=== PATIENT | female | born 1950 | race Caucasian/White ===

== ENCOUNTER 2019-10-29 13:07 | Emergency (ER) | payer MEDICARE, SELFPAY ==
--- NOTE | ~2019-10-29 | CT_ITS ---
EXAMINATION: CT abdomen pelvis w con DATE: 10/29/2019 14:04 INDICATION: Abdominal pain, nausea and vomiting TECHNIQUE: Computed tomography (CT) of the abdomen and pelvis was performed . with 100 mL Omnipaque-3 50 intravenous contrast. Automated exposure control and iterative reconstruction technique were emplo yed. The dose-length product was 533.38 mGy-cm. COMPARISON: None FINDINGS: Atelectasis/scarring in the right middle lobe and along the left major fissure. Cardiomegaly. Atheros clerotic coronary artery calcifications. No pericardial or pleural effusion. Small sliding-type hiata l hernia. Calcified right hilar and mediastinal lymph nodes and splenic calcification, all consistent with old granulomatous disease. Liver, gallbladder, pancreas and bilateral adrenal glands are normal . Diffuse moderate atrophy of the left kidney. Obstructing 1-2 mm stone at the distalmost right urete r within 1 cm the ureterovesicular junction which results in mild right hydroureteronephrosis. There is perinephric stranding at the lower pole of the right kidney with small amount retroperitoneal flui d tracking caudally along the right ureter. Appendix is normal. There is moderate colonic diverticulo sis with a sigmoid predominance. There is no adjacent inflammatory change to suggest diverticulitis. No bowel obstruction. Bladder, anteverted uterus and bilateral adnexa are unremarkable. No free intr aperitoneal gas or fluid. There is extensive calcified atherosclerosis of the aorta and many of the o ther arteries. Suggestion of possible hemodynamically significant stenosis at the origins of the left renal and superior mesenteric arteries. No pathologically enlarged abdominal or pelvic lymphadenopat hy. Severe thoracic and lumbar spondylosis. IMPRESSION: 1. Obstructing 1-2 mm distal right ureteral stone with mild right hydronephrosis and small moderate p eritoneal fluid tracking along the right ureter suggesting possible secondary urinoma leak. 2. Small sliding-type hiatal hernia. 3. Cardiomegaly with coronary artery disease. 4. Moderate left renal atrophy which could be related to ischemia given the potentially hemodynamical ly significant stenosis at the origin of the left renal artery with additional possible significant s tenosis at the superior mesenteric artery. 5. Diverticulosis. Reviewed, dictated and finalized at location A. IMPRESSION: 1. Obstructing 1-2 mm distal right ureteral stone with mild right hydronephrosi s and small moderate peritoneal fluid tracking along the right ureter suggestin g possible secondary urinoma leak. 2. Small sliding-type hiatal hernia. 3. Cardiomegaly with coronary artery disease. 4. Moderate left renal atrophy which could be related to ischemia given the pot entially hemodynamically significant stenosis at the origin of the left renal a rtery with additional possible significant stenosis at the superior mesenteric artery. 5. Diverticulosis.
[2019-10-29 13:08] VITALS: BP 148/108; PULSE 87; RESP 18; O2SAT 98
[2019-10-29 13:28] LABS: Basophils Percent Auto 0.2 % (0.2-1.2); Eosinophils Percent Auto 0.3 % (0-4.4); Hematocrit 37.2 % (37.0-47.0); Hemoglobin 12.3 g/dL (12.0-15.0); Immature Granulocyte Absolute 0.03 K/mm3 (0.00-0.031); Immature Granulocyte Percent A 0.2 % (0-0.5); Lymphocytes Absolute Auto 1.89 K/mm3 (0.9-3.2); Lymphocytes Percent Auto 15.4 % (18.3-44.2); Mean Corpuscular HGB Conc 33.1 g/dl (32-36); Mean Corpuscular Hemoglobin 29.7 pg (26-34); Mean Corpuscular Volume 89.9 fl (80-100); Mean Platelet Volume 9.6 fl (7.4-10.4); Monocytes Absolute Auto 0.6 K/mm3 (0.1-0.6); Monocytes Percent Auto 5.1 % (2.6-8.5); Neutrophils Absolute Auto 9.6 K/mm3 (1.3-6.7); Neutrophils Percent Auto 78.8 % (45.5-73.1); Platelet Count Result 365 k/mm3 (150-375); Red Blood Count 4.14 M/mm3 (4.2-5.4); Red Cell Distribution Width 13.5 % (11.5-14.5); White Blood Count 12.2 K/mm3 (4.5-10.0)
[2019-10-29 13:37] LABS: Alanine Aminotransferase 25 U/L (4-35); Albumin Level 4.6 g/dL (3.5-5.1); Alkaline Phosphatase 89 U/L (38-126); Aspartate Amino Transferase 32 U/L (14-36); Bilirubin,Total 0.5 mg/dL (0.2-1.3); Blood Urea Nitrogen 31 mg/dL (7-17); Calcium 9.6 mg/dL (8.4-10.2); Carbon Dioxide 23 mmol/L (22-30); Chloride 105 mmol/L (98-107); Estimated CRCL calculation 45 ml/min; Estimated Glomerular Filt Rate 55; Glucose 198 mg/dL (65-105); Lipase 109 U/L (23-300); Potassium 3.9 mmol/L (3.4-5.0); Sodium 138 mmol/L (137-145)
--- NOTE | 2019-10-29 13:41 | ED.ABDPAIN ---
HPI - Abdominal Pain General Chief Complaint: Abdominal Pain Stated Complaint: RLQ PAIN Time Seen by Provider: 10/29/19 13:13 Source: RN notes reviewed History of Present Illness HPI narrative: Patient presents emergency department from home for abdominal pain. Patient states that pain began this morning around 10 AM. Pain is located in the right lower quadrant does not radiate. Pain is described as sharp and stabbing it is associated with nausea vomiting. Patient denies any fevers or chills diarrhea or any other symptoms. States she took no previous pain medication for the symptoms Related Data Allergies Allergy/AdvReac Type Severity Reaction Status Date / Time Penicillins Allergy Mild Verified 03/10/19 14:22 Review of Systems Review of Systems: Narrative: Gen.: Denies fevers or chills ENT: Denies congestion Respiratory: Denies shortness of breath or cough CV: Denies chest pain or palpitations GI: See HPI denies burning, urgency, frequency or hematuria Musculoskeletal: Denies back pain or muscle pain Neuro: Denies numbness, tingling, weakness or focal weakness Skin: Denies rash Except as documented, all other systems reviewed and negative [facility] Past Medical History Medical History (Updated 10/29/19 @ 15:27 by Luiz Wills DO) Atrial fibrillation Diabetes mellitus Hypertension Social History Social History (Updated 10/29/19 @ 13:42 by Luiz Wills DO) Smoking status: Never smoker Exam Narrative: Exam Narrative: APPEARANCE: No acute distress, nontoxic, resting in bed HEENT: Normocephalic, atraumatic, OMM RESPIRATORY: No respiratory distress, clear to auscultation bilaterally with no rhonchi wheezing or rales CARDIOVASCULAR: RRR s murmur ABDOMINAL: Soft, nondistended, tender palpation right lower quadrant, no tenderness in right upper quadrant, left upper quadrant left lower quadrant, no rebound or guarding MUSCULOSKELETAl: Moves all extremities. No clubbing, cyanosis or edema. NEURO: Awake and alert. Following commands, speech normal, no focal deficits SKIN:: Warm, dry. Normal Color PSYCHIATRIC: Normal affect/mood Course Course Emergency Course: Called discussed with Dr. Bucio presentation work-up discussed CT scan. At this time recommends patient be placed on Cipro 500 mg twice daily for 3 days and will follow as an outpatient Patient states she is feeling much better at this time Patient states that they are feeling much better at this time. States abdominal pain has resolved. Repeat abdominal exam shows the patient's abdomen to be soft and nontender. Discussed with patient results of workup and diagnosis. Discussed need for follow-up with primary care physician, reasons to return to the emergency department in proper use of medication. Patient understands and agrees to current treatment plan Vital Signs Vital signs: Vital Signs Pulse Rate 87 10/29/19 13:08 Respiratory Rate 18 10/29/19 13:08 Blood Pressure 148/108 H 10/29/19 13:08 Pulse Oximetry 98 10/29/19 13:08 Pulse Rate 87 10/29/19 13:08 Respiratory Rate 18 10/29/19 13:08 Blood Pressure 148/108 H 10/29/19 13:08 Pulse Oximetry 98 10/29/19 13:08 MDM - Abdominal Pain Lab Data Result diagrams: 10/29/19 13:16 10/29/19 13:16 Labs: Lab Results 10/29/19 10/29/19 10/29/19 Range/Units 13:16 13:16 14:37 WBC 12.2 H (4.5-10.0) K/mm3 RBC 4.14 L (4.2-5.4) M/mm3 Hgb 12.3 (12.0-15.0) g/dL Hct 37.2 (37.0-47.0) % MCV 89.9 (80-100) fl MCH 29.7 (26-34) pg MCHC 33.1 (32-36) g/dl RDW 13.5 (11.5-14.5) % Plt Count 365 (150-375) k/mm3 MPV 9.6 (7.4-10.4) fl Immature Gran % (Auto) 0.2 (0-0.5) % Neut % (Auto) 78.8 H (45.5-73.1) % Lymph % (Auto) 15.4 L (18.3-44.2) % [place] % (Auto) 5.1 (2.6-8.5) % Eos % (Auto) 0.3 (0-4.4) % Baso % (Auto) 0.2 (0.2-1.2) % Lymph # (Auto) 1.89 (0.9-3.2) K/mm3 [place] # (Auto)
[2019-10-29] MEDS: SODIUM CHLORIDE 0.9% IV 1,000 ML 999 ML IV CONT (13:49)
[2019-10-29] MEDS: ONDANSETRON INJ 4 MG/2 ML VIAL IV PUSH (13:49)
[2019-10-29 14:47] LABS: Add Urine Microscopic? YES; Appearance Urine Clear (Clear); Bilirubin Urine Negative (Negative); Blood Urine 3+ (Negative); Glucose Urine UA 2+ mg/dL (Negative); Ketones Urine Negative (Negative); Leukocyte Esterase Ur Negative LEU/UL (Negative); Mucus Urine Rare /lpf; Nitrate Urine Negative (Negative); Protein Urine Negative (Negative); RBC Urine >75 /hpf (0-2); Squamous Epithelial Cell Urine Occasional /hpf (Few); Urobilinogen Urine Negative mg/dL (<2.0); WBC Urine 0-3 /hpf
[2019-10-29 14:48] LABS: Color Urine Straw (Yellow); Specific Grav Ur 1.048 (1.001-1.035)
[2019-10-29] MEDS: TAMSULOSIN HCL 0.4 MG CAPSULE PO (15:32)
[2019-10-29] MEDS: CIPROFLOXACIN 500 MG TAB PO (15:33)
[2019-10-29 15:48] VITALS: BP 138/80; PULSE 80; RESP 20; O2SAT 99
== END 2019-10-29 15:50 | disposition home or self-care (01) ==
PROVIDERS: Emergency Provider Emergency Medicine; PCP Family Medicine
DX: N13.2 Hydronephrosis with renal and ureteral calculous obstruction (principal); I48.91 Unspecified atrial fibrillation; E11.9 Type 2 diabetes mellitus without complications; I10 Essential (primary) hypertension; K44.9 Diaphragmatic hernia without obstruction or gangrene; I25.10 Atherosclerotic heart disease of native coronary artery without angina pectoris; N26.1 Atrophy of kidney (terminal); K57.90 Diverticulosis of intestine, part unspecified, without perforation or abscess without bleeding
CPT/HCPCS: 36415; 74177; 80053; 81001; 83690; 85025; 96361; 96374; 96375; 99284; A9270; J0131; J2405; J7030; Q9967

== ENCOUNTER 2020-10-27 12:40 | Outpatient (CLI) | payer MEDICARE, SELFPAY ==
--- NOTE | ~2020-10-27 | US_ITS ---
EXAMINATION: US carotid duplex BI DATE: 10/27/2020 13:21 INDICATION: Lateral carotid artery stenosis TECHNIQUE: Grayscale, color Doppler, and pulsed Doppler images of the cervical carotid arteries were obtained. The degree of vessel stenosis is placed in one of the following categories: normal, <50%, 5 0-69%, >=70% but less than near-occlusion, near-occlusion, or total occlusion. Note that percent sten osis relative to normal distal artery lumen diameter is indirectly measured from velocity measurement s as described by Nima, et al. Radiology 2003; 229:340-346. Notes: Normal: Peak systolic velocity <125 centimeters/sec and no plaque <50%. Peak systolic velocity <125 ( EDV <40; ICA/CCA PSV ratio <2.0; used these factors only a tandem lesions or low cardiac output or co ntralateral disease) 50-69 %: PSV 125-230 (EDV 40-100; ratio 2-4) >= 70% but less than near occlusion: PSV greater than 230 (EDV > 100; ratio> 4.0) Near Occlusion: PSV that is variable; markedly narrowed lumen Occlusion: Absent flow on color/spectral Doppler and no lumen on camejo scale. COMPARISON: Ultrasound dated 06/06/2019. FINDINGS: RIGHT: The right common carotid artery (CCA) peak systolic velocity (PSV) is 55 cm/s. The right internal car otid artery (ICA) PSV is 100 cm/s. The right ICA end-diastolic velocity (EDV) is 39 cm/s. The right I CA/CCA PSV ratio is 1.8. The external carotid artery (ECA) PSV is 199 cm/s. There is antegrade flow i n the right vertebral artery. LEFT: The left CCA PSV is 64 cm/s. The left ICA PSV is 71 cm/s. The left ICA EDV is 23 cm/s. The left ICA/C CA PSV ratio is 1.1. The ECA PSV is 116 cm/s. There is antegrade flow in the left vertebral artery. IMPRESSION: 1. Less than 50% stenosis in the right internal carotid artery by sonographic criteria. 2. Less than 50% stenosis in the left internal carotid artery by sonographic criteria. Reviewed, dictated and finalized at location B. IMPRESSION: 1. Less than 50% stenosis in the right internal carotid artery by sonographic c maria luisa. 2. Less than 50% stenosis in the left internal carotid artery by sonographic jamila meehan.
== END 2020-10-27 12:41 | disposition home or self-care (01) ==
PROVIDERS: PCP Family Medicine; Visit Provider Internal Medicine Cardiovascular Disease
DX: I35.0 Nonrheumatic aortic (valve) stenosis (principal); I65.23 Occlusion and stenosis of bilateral carotid arteries
CPT/HCPCS: 93880

== ENCOUNTER → 2021-07-30 11:24 | Outpatient (CLI) | payer MEDICARE, SELFPAY ==
--- NOTE | ~2021-07-30 | CT_ITS ---
EXAMINATION: CT shoulder RT wo con DATE: 07/30/2021 11:53 INDICATION: Right shoulder pain. TECHNIQUE: Computed tomography (CT) of the right shoulder was performed without intravenous contrast. Automated exposure control and iterative reconstruction technique were employed. The dose-length pro duct was 455.12 mGy-cm. COMPARISON: None FINDINGS: There is a small right pleural effusion. There is superior subluxation of humeral head with respect to glenoid with narrowing of the subacromial space, consistent with rotator cuff tear. There is remodeling of the humeral head and acromion, consistent with cuff arthropathy. No fracture. There is severe osteoarthritis of glenohumeral joint and moderate osteoarthritis of acromioclavicular join t. There is volume loss and moderate fatty atrophy of supraspinatus and infraspinatus muscle bellies. IMPRESSION: 1. Severe right glenohumeral joint osteoarthritis. 2. Chronic right rotator cuff tear with cuff arthropathy. 3. Small right pleural effusion. Reviewed, dictated and finalized at location A. ROAD CAR REPAIRMAN
--- NOTE | ~2021-07-30 | XR_ITS ---
EXAMINATION: XR shoulder RT min 2V EXAM DATE: 07/30/2021 12:44 INDICATION: Right shoulder pain . TECHNIQUE: The following right shoulder projections obtained: frontal projection with internal rotati on, frontal projection with external rotation, Grashey, and axillary (4+ views). There is no prior s tudy for comparison. FINDINGS: No evidence of right shoulder rotator cuff calcific tendinosis. There is moderate to sev ere glenohumeral joint, mild to moderate acromioclavicular joint primary osteoarthritis. There are no acute fractures or dislocations identified. There is no subcutaneous gas. The soft tissue is unrem arkable. There are no radiopaque foreign bodies. There is aortic arteriosclerosis. Narrow space be tween humeral head and acromion could indicate rotator cuff tear. IMPRESSION: 1. Moderate to severe right glenohumeral joint osteoarthritis. 2. High riding right humeral head, possible rotator cuff tear. Reviewed, dictated and finalized at location A. ULATION REVIEWER
== END ==
PROVIDERS: Visit Provider Nurse Practitioner Adult Health
DX: M25.511 Pain in right shoulder (principal); M19.011 Primary osteoarthritis, right shoulder; M89.8X2 Other specified disorders of bone, upper arm; M75.101 Unspecified rotator cuff tear or rupture of right shoulder, not specified as traumatic; J90 Pleural effusion, not elsewhere classified
CPT/HCPCS: 73030; 73200

== ENCOUNTER → 2023-05-02 13:40 | Outpatient (CLI) | payer SELFPAY ==
--- NOTE | ~2023-05-02 | XR_ITS ---
EXAMINATION: XR shoulder RT min 2V DATE: 05/02/2023 14:47 INDICATION: Right shoulder pain. TECHNIQUE: 4 views of right shoulder were obtained. COMPARISON: Right shoulder radiographs 07/30/2021 FINDINGS: Bone alignment is normal. No fracture. There is advanced osteoarthritis of glenohumeral keila nt. Again seen is narrowing of the subacromial space, consistent with chronic rotator cuff tear. Ther e is moderate osteoarthritis of acromioclavicular joint. IMPRESSION: 1. Advanced right glenohumeral joint osteoarthritis. 2. Chronic right rotator cuff tear. Reviewed, dictated and finalized at location A. PATIAL SPECIALIST
== END ==
PROVIDERS: PCP Nurse Practitioner Adult Health; Visit Provider Nurse Practitioner Adult Health
DX: M75.101 Unspecified rotator cuff tear or rupture of right shoulder, not specified as traumatic (principal); M19.011 Primary osteoarthritis, right shoulder
CPT/HCPCS: 73030

== ENCOUNTER 2023-10-22 10:55 | Inpatient (IN) | payer MEDICARE, SELFPAY ==
[2023-10-22] VITALS (26 sets, daily range): BP systolic 94–140; BP diastolic 30–88; PULSE 81–137; RESP 14–36; TEMP 36.4–36.9; O2SAT 94–100; BMI 26.1
--- NOTE | ~2023-10-22 | CT_ITS ---
EXAMINATION: CT brain wo con DATE: 10/22/2023 11:16 INDICATION: Multiple falls. Left forehead bruising. Patient is taking anticoagulant therapy. TECHNIQUE: Computed tomography (CT) of the head was performed without intravenous contrast. The mA wa s adjusted according to patient size. Iterative reconstruction technique was employed. Exam dose: 52 9.67 mGy-cm total exam DLP. COMPARISON: 03/10/2019 CT brain FINDINGS: Prominent bilateral vertebral artery calcifications and prominent bilateral carotid siphon and supraclinoid internal carotid artery calcifications. Old right frontal infarct, not present on 03/10/2019. No other cerebrovascular accident is evident. T here is nonspecific diminished attenuation the cerebral white matter, likely due to chronic small ves adelina ischemic changes. No intracranial mass lesion or hemorrhage, midline shift or mass effect is detected. No subdural or epidural hematoma. The included mastoid air cells and paranasal sinuses are unremarkable. No fracture or bone destruction of the cranial vault. 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 Reviewed, dictated and finalized at location A. IMPRESSION: Old right frontal cerebrovascular accident, not present on 019 Cerebral atherosclerosis and chronic small vessel ischemic changes of the cereb ral white matter No acute intracranial finding
--- NOTE | ~2023-10-22 | CT_ITS ---
EXAMINATION: CT cervical spine wo con DATE: 10/22/2023 11:16 INDICATION: Falls. Left fourth rib bruising. TECHNIQUE: Computed tomography (CT) of the cervical spine was performed without intravenous contrast. Automated exposure control and iterative reconstruction technique were employed. Exam dose: 419.52 mGy-cm total exam DLP. COMPARISON: None FINDINGS: Normal alignment at the atlantoaxial joints. C1 and C2 are normally aligned and the odontoid process is intact. No fracture or dislocation or facet or prevertebral soft tissue swelling is detected. There is approximately 2 mm anterolisthesis at C4-5. There is severe degenerative disc disease prominent anterior spurring at C5-6. Approximately 1 mm anterolisthesis at C6-7. There is severe degenerative disc disease at C6-7 with pr ominent anterior spurring. Moderately severe degenerative disc disease at C7-T1 and T1 to. Moderate degenerative disease at T2-3 . There is uncovertebral joint spurring at the mid and lower cervical spine, particularly prominent adri aterally at C5-6. There is fusion at the apophyseal joints bilaterally at T2-C4 and moderate degenerative change of the remaining apophyseal joints, especially severe on the left and on the right at C7-T1. IMPRESSION: Severe cervical spondylosis and no fracture is detected Reviewed, dictated and finalized at Location A. Reviewed, dictated and finalized at location A.
--- NOTE | ~2023-10-22 | US_ITS ---
EXAMINATION: US carotid duplex BI DATE: 10/23/2023 09:45 INDICATION: Syncope TECHNIQUE: Grayscale, color Doppler, and pulsed Doppler images of the cervical carotid arteries were obtained. The degree of vessel stenosis is placed in one of the following categories: normal, <50%, 5 0-69%, >=70% but less than near-occlusion, near-occlusion, or total occlusion. Note that percent sten osis relative to normal distal artery lumen diameter is indirectly measured from velocity measurement s as described by Nima, et al. Radiology 2003; 229:340-346. Notes: Normal: Peak systolic velocity <125 centimeters/sec and no plaque <50%. Peak systolic velocity <125 ( EDV <40; ICA/CCA PSV ratio <2.0; used these factors only a tandem lesions or low cardiac output or co ntralateral disease) 50-69 %: PSV 125-230 (EDV 40-100; ratio 2-4) >= 70% but less than near occlusion: PSV greater than 230 (EDV > 100; ratio> 4.0) Near Occlusion: PSV that is variable; markedly narrowed lumen Occlusion: Absent flow on color/spectral Doppler and no lumen on camejo scale. COMPARISON: Ultrasound dated 10/27/2020. FINDINGS: RIGHT: The right common carotid artery (CCA) peak systolic velocity (PSV) is 77 cm/s. The right internal car otid artery (ICA) PSV is 182 cm/s. The right ICA end-diastolic velocity (EDV) is 41 cm/s. The right I CA/CCA PSV ratio is 2.4. The external carotid artery (ECA) PSV is 434 cm/s. There is antegrade flow i n the right vertebral artery. LEFT: The left CCA PSV is 100 cm/s. The left ICA PSV is 211 cm/s. The left ICA EDV is 37 cm/s. The left ICA /CCA PSV ratio is 2.1. The ECA PSV is 410 cm/s. There is antegrade flow in the left vertebral artery . IMPRESSION: 1. 50-69% stenosis in the right internal carotid artery by sonographic criteria. 2. 50-69% stenosis in the left internal carotid artery by sonographic criteria. Reviewed, dictated and finalized at location B. IMPRESSION: 1. 50-69% stenosis in the right internal carotid artery by sonographic criteria . 2. 50-69% stenosis in the left internal carotid artery by sonographic criteria.
--- NOTE | 2023-10-22 11:42 | ECG_ITS ---
[facility] [address] Test Date: 2023-10-22 Pat Name: Elvia Velasquez Department: Room: Gender: F [employer]: : 1950 Requested By: Alex Loving Order Number: [id number] Jv MD: Devang Kumar M.D. Measurements Intervals [place] Rate: 121 P: 0 AK: 0 QRS: 63 QRSD: 97 T: -53 QT: 289 QTc: 411 Interpretive Statements ATRIAL FIBRILLATION WITH RAPID VENTRICULAR RESPONSE ST DEVIATION AND MODERATE T-WAVE ABNORMALITY, CONSIDER LATERAL ISCHEMIA [-0.1+ mV T WAVE IN I/aVL/V5/V6] ST DEVIATION AND MODERATE T-WAVE ABNORMALITY, CONSIDER INFERIOR ISCHEMIA [-0.1+ mV T WAVE IN II/aVF] No previous ECG available for comparison Electronically Signed On 10-22-2023 14:20:56 CDT by Devang Kumar M.D.
[2023-10-22 11:45] LABS: Basophils Percent Auto 0.2 % (0.2-1.2); Eosinophils Percent Auto 0.1 % (0-4.4); Immature Granulocyte Absolute 0.06 K/mm3 (0.00-0.031); Immature Granulocyte Percent A 0.4 % (0-0.5); Lymphocytes Absolute Auto 1.72 K/mm3 (0.9-3.2); Mean Corpuscular HGB Conc 32.1 g/dl (32-36); Mean Corpuscular Hemoglobin 29.7 pg (26-34); Mean Corpuscular Volume 92.6 fl (80-100); Mean Platelet Volume 9.5 fl (7.4-10.4); Monocytes Absolute Auto 0.9 K/mm3 (0.1-0.6); Monocytes Percent Auto 6.1 % (2.6-8.5); Neutrophils Absolute Auto 11.6 K/mm3 (1.3-6.7); Neutrophils Percent Auto 81.2 % (45.5-73.1); Platelet Count Result 373 k/mm3 (150-375); Red Blood Count 2.02 M/mm3 (4.2-5.4); Red Cell Distribution Width 14.6 % (11.5-14.5); White Blood Count 14.3 K/mm3 (4.5-10.0)
[2023-10-22 11:49] LABS: Hematocrit 18.7 % (37.0-47.0)
[2023-10-22 12:00] LABS: Albumin Level 4.2 g/dL (3.5-5.1); Alkaline Phosphatase 73 U/L (38-126); Anion Gap 15 mmol/L (4-12); Aspartate Amino Transferase 38 U/L (14-36); Bilirubin,Total 0.6 mg/dL (0.2-1.3); Blood Urea Nitrogen 40 mg/dL (7-17); Calcium 9.3 mg/dL (8.4-10.2); Carbon Dioxide 20 mmol/L (22-30); Chloride 100 mmol/L (98-107); Estimated CRCL calculation 46 ml/min; Estimated Glomerular Filt Rate > 60; Glucose 239 mg/dL (65-110); Lipase 490 U/L (23-300); Sodium 135 mmol/L (137-145)
[2023-10-22 12:02] LABS: Alanine Aminotransferase 25 U/L (6-35)
[2023-10-22 12:32] LABS: Appearance Urine Clear (Clear); Bacteria Urine None Seen /hpf; Bilirubin Urine Negative (Negative); Blood Urine Negative (Negative); Color Urine Yellow (Yellow); Glucose Urine UA 3+ mg/dL (Negative); Ketones Urine Trace mg/dL (Negative); Leukocyte Esterase Ur Negative LEU/UL (Negative); Need Manual Microscopic Reviewed; Nitrate Urine Negative (Negative); Protein Urine Trace mg/dL (Negative); RBC Urine 0-2 /hpf (0-2); Specific Grav Ur 1.023 (1.001-1.035); Squamous Epithelial Cell Urine None Seen /hpf (Few); Urobilinogen Urine 0.2 mg/dL (<2.0); WBC Urine 0-5 /hpf (0-3); pH Urine 5.5 (5.0-9.0)
[2023-10-22 12:37] LABS: Add Urine Microscopic? YES
--- NOTE | 2023-10-22 12:58 | ED.GENADULT ---
HPI - General Adult General Chief complaint: Nausea/Vomiting/Diarrhea Stated complaint: nausea vomiting, falls, Time Seen by Provider: 10/22/23 12:22 History of Present Illness HPI narrative: 73-year-old female presenting emergency department for evaluation for having 2 syncopal episodes this week. Patient had her 1st fall on Tuesday and had a 2nd fall last night. Patient did strike her head during the fall last night. Patient states after Tuesday she has been passing black tarry stool. Patient states she has no prior history of GI bleed or gastric ulcers. Patient is not on any blood thinners. Patient states she does take ibuprofen. Related Data Home Medications Medication Instructions Recorded Confirmed atorvastatin 80 mg tablet 80 mg PO DAILY 08/29/23 08/29/23 diltiazem HCl 300 mg 300 mg PO DAILY 08/29/23 08/29/23 capsule,extended release 24 hr (Cardizem CD) glipizide 5 mg tablet 5 mg PO DAILY 08/29/23 08/29/23 levothyroxine 100 mcg tablet 100 mcg PO DAILY 08/29/23 08/29/23 (Synthroid) meloxicam 15 mg tablet 15 mg PO DAILY 08/29/23 08/29/23 olmesartan 20 mg tablet 20 mg PO DAILY 08/29/23 08/29/23 rivaroxaban 20 mg tablet (Xarelto) 20 mg PO DAILY 08/29/23 08/29/23 salicylic acid 2 % topical pads 1 applic topical QHS 08/29/23 08/29/23 sitagliptin phos 100 mg-metformin 1 tablet PO DAILY 08/29/23 08/29/23 ER 1,000 mg tablet,extend rel 24h mp (Janumet XR) tramadol 50 mg tablet 50 mg PO Q6H PRN 08/29/23 08/29/23 Allergies Allergy/AdvReac Type Severity Reaction Status Date / Time Penicillins Allergy Mild Unknown Verified 08/29/23 10:55 Review of Systems Review of Systems: All systems reviewed & are unremarkable except as noted in HPI and below PMFSH Past Medical History Medical History (Updated 10/22/23 @ 15:44 by Julianna Barahona PA-C) Atrial fibrillation Chronic anticoagulation History of stress test Hyperlipidemia Hypertension Hypothyroidism Paroxysmal atrial fibrillation Type 2 diabetes mellitus Surgical History Surgical History (Updated 10/22/23 @ 15:42 by Julianna Barahona PA-C) History of cardioversion History of lumpectomy of right breast Family History Family History Other Breast cancer Social History Social History (Updated 10/22/23 @ 15:43 by Julianna Barahona PA-C) Social History: Surrogate medical decision maker: Ced Velasquez, son. Code status: Full code. Smoking status: Never smoker Alcohol intake: never Substance use: never Substance use type: does not use Do You Feel Safe in your Home?: Yes Lack of Transportation: No Lack of Food: Never True Current Housing: I Have Housing Concerned About Future Housing: No Difficulty Paying Gas/Electric Bills: No Difficulty Paying for Meds: No Currently Unemployed: No Education: High School Diploma/GED Difficulty w/ Childcare or Family Care: No Spiritual care concerns: No Exam Narrative: APPEARANCE: Well appearing, no pain, no distress, well-nourished. HEAD: normocephalic, facial contusion with minimal tenderness to palpation. EYES: PERRLA/EOMI, conjunctivae clear. NOSE: Normal no drainage EARS:TMS clear with good light reflex. THROAT: Pharynx clear, no exudate. NECK: Supple. No adenopathy, no masses. RESPIRATORY: Airway patent, respirations nonlabored. Clear to auscultation bilaterally, no rales, rhonchi, wheezing. CARDIOVASCULAR: Regular rate and rhythm without murmurs rubs or gallops. ABDOMINAL: Soft, nontender, nondistended, normal bowel sounds Rectal exam: Hemoccult positive with dark melena stool on the digital rectal exam MUSCULOSKELETAL: Moves all extremities. Strength/ROM intact, No edema, No calf tenderness. NEURO: Alert. Cranial nerves II through XII intact. Good gait. Good coordination SKIN: Warm, dry. Normal Color PSYCHIATRIC: Normal affect/mood. Course Vital Signs Vital signs: Vital Signs Pulse Rat
[2023-10-22] MEDS: ONDANSETRON INJ 4 MG/2 ML VIAL IV PUSH (13:22)
[2023-10-22] MEDS: PANTOPRAZOLE SODIUM IV 40 MG VIAL 80 MG IV PUSH (13:24)
[2023-10-22] MEDS: PANTOPRAZOLE SODIUM IV 80 MG in SODIUM CHLORIDE 0.9% IV 500 ML 50 MG IV CONT (14:11)
[2023-10-22] MEDS: SODIUM CHLORIDE 0.9% IV 1,000 ML 999 ML IV CONT (14:14)
--- NOTE | 2023-10-22 15:40 | PM.IMHP ---
H&P: HPI History of Present Illness Date/Time: 10/22/23 16:30 Chief Complaint: Falls, syncope, nausea, vomiting. Narrative: This is a very pleasant 73-year-old female with paroxysmal atrial fibrillation on chronic anticoagulation, hypertension, hyperlipidemia, type 2 diabetes mellitus, hypothyroidism, and arthritis who presented to the emergency department for evaluation of falls, syncope, nausea, and vomiting. The patient provides the following history. She has not felt well for 5 days with symptoms to include nausea, vomiting on Tuesday with the appearance of coffee-ground emesis, dark stools, progressive weakness, and dizziness with position changes. She had a syncopal episode on Tuesday evening after standing up in feeling extremely lightheaded. She fell forward and hit her head on the concrete patio. Luckily there were no significant injuries and she was able to get herself up. She fell again last night under similar circumstances but there was no loss of consciousness this time. She started Ozempic about 4 weeks ago and she has had some mild nausea since that time but nothing significant. She takes meloxicam daily for arthritic pain but denies other NSAID use. She drinks 1 soda a day and denies alcohol use. No history of peptic ulcers. No known sick contacts. She denies fever, chills, sweats, cold and flu symptoms, chest pain, pleuritic pain, palpitations, epigastric pain, abdominal pain, bloating, belching, and hematochezia. In the ED: She was in rapid atrial fibrillation with rates in the 130s on arrival. Blood pressures were as low as 94/38. Labs were significant for a WBC count of 14.3, hemoglobin 6.0, hematocrit 18.7 %, BUN 40, creatinine 0.90, glucose 239, lipase 490, total bilirubin 0.6, AST 30, ALT 25, alkaline phosphatase 73. Head CT showed old right frontal cerebrovascular accident and cerebral atherosclerosis and chronic small-vessel ischemic changes of the cerebral white matter but no acute intracranial finding. Cervical spine CT showed severe cervical spondylosis but no fracture. She was started on pantoprazole and 2 units packed red blood cells have been ordered. She is being admitted in this setting for further workup. Review of Systems Review of Systems: 12 systems were reviewed and are negative except for as per HPI. [facility] Past Medical History Medical History Atrial fibrillation Chronic anticoagulation History of stress test Hyperlipidemia Hypertension Hypothyroidism Paroxysmal atrial fibrillation Type 2 diabetes mellitus Surgical History Surgical History History of cardioversion History of lumpectomy of right breast Family History Family History Other Breast cancer Social History Social History Social History: Surrogate medical decision maker: Ced Velasquez, son. Code status: Full code. Smoking status: Never smoker Alcohol intake: never Substance use: never Substance use type: does not use Do You Feel Safe in your Home?: Yes Lack of Transportation: No Lack of Food: Never True Current Housing: I Have Housing Concerned About Future Housing: No Difficulty Paying Gas/Electric Bills: No Difficulty Paying for Meds: No Currently Unemployed: No Education: High School Diploma/GED Difficulty w/ Childcare or Family Care: No Spiritual care concerns: No Meds Home Medications and Allergies Home Medications Medication Instructions Recorded Confirmed Type atorvastatin 80 mg tablet 80 mg PO DAILY 08/29/23 08/29/23 History diltiazem HCl 300 mg 300 mg PO DAILY 08/29/23 08/29/23 History capsule,extended release 24 hr (Cardizem CD) glipizide 5 mg tablet 5 mg PO DAILY 08/29/23 08/29/23 History levothyroxine 100 mcg tablet 100 mcg PO DAILY 04
--- NOTE | 2023-10-22 16:26 | ADMGEN ---
This patient, Elvia Velasquez, was admitted to [facility] [place] at 1618. Patient/family oriented to hospital policies and general routines including ID bracelet, bed and alarms, visiting hours, pain management, procedures, bathroom and other care routines, personal items, smoking policy, room service/diet, and visiting hours. Information on how to activate the Rapid Response Team has been discussed. Patient/Family are encouraged to report perceived risks to care and to ask questions if they do not understand what they are told or what they should do.
[2023-10-22 17:04] LABS: Hemoglobin A1C 6.7 % (<5.7)
[2023-10-22] MEDS: SODIUM CHLORIDE 0.9% IV 250 ML 30 ML IV CONT (19:18)
[2023-10-22] MEDS: TUBING, BLOOD SET 1 EACH XX (19:19)
[2023-10-22] MEDS: TUBING, BLOOD PLUM PUMP TUBING 1 EACH XX ×2 (19:21→21:45)
[2023-10-22] MEDS: SODIUM CHLORIDE 0.9% IV 250 ML 30 ML (21:46)
[2023-10-22 23:05] LABS: Glucose Point of Care 83 mg/dl (65-105)
[2023-10-23] VITALS (18 sets, daily range): BP systolic 121–175; BP diastolic 64–74; PULSE 80–121; RESP 16–24; TEMP 36.4–37; O2SAT 96–99
[2023-10-23] MEDS: PANTOPRAZOLE SODIUM IV 80 MG in SODIUM CHLORIDE 0.9% IV 500 ML 50 MG IV CONT ×3 (01:19→21:07)
[2023-10-23 01:31] LABS: Hemoglobin 8.3 g/dL (12.0-15.0)
[2023-10-23 04:38] LABS: Basophils Percent Auto 0.3 % (0.2-1.2); Eosinophils Absolute Auto 0.1 K/mm3 (0-0.3); Hematocrit 26.3 % (37.0-47.0); Hemoglobin 8.4 g/dL (12.0-15.0); Immature Granulocyte Absolute 0.05 K/mm3 (0.00-0.031); Immature Granulocyte Percent A 0.4 % (0-0.5); Lymphocytes Percent Auto 21.9 % (18.3-44.2); Mean Corpuscular HGB Conc 31.9 g/dl (32-36); Mean Corpuscular Hemoglobin 29.8 pg (26-34); Mean Corpuscular Volume 93.3 fl (80-100); Mean Platelet Volume 9.3 fl (7.4-10.4); Monocytes Absolute Auto 1.2 K/mm3 (0.1-0.6); Neutrophils Absolute Auto 9.2 K/mm3 (1.3-6.7); Neutrophils Percent Auto 67.4 % (45.5-73.1); Platelet Count Result 311 k/mm3 (150-375); Red Blood Count 2.82 M/mm3 (4.2-5.4); Red Cell Distribution Width 15.1 % (11.5-14.5); White Blood Count 13.7 K/mm3 (4.5-10.0)
[2023-10-23 04:51] LABS: Alanine Aminotransferase 17 U/L (6-35); Albumin Level 3.4 g/dL (3.5-5.1); Alkaline Phosphatase 65 U/L (38-126); Anion Gap 6 mmol/L (4-12); Aspartate Amino Transferase 31 U/L (14-36); Bilirubin,Total 1.1 mg/dL (0.2-1.3); Blood Urea Nitrogen 33 mg/dL (7-17); Calcium 8.7 mg/dL (8.4-10.2); Carbon Dioxide 23 mmol/L (22-30); Chloride 106 mmol/L (98-107); Estimated CRCL calculation 42 ml/min; Estimated Glomerular Filt Rate 54; Glucose 96 mg/dL (65-110); Lipase 571 U/L (23-300); Magnesium 1.7 mg/dL (1.6-2.3); Potassium 4.3 mmol/L (3.4-5.0); Sodium 135 mmol/L (137-145)
[2023-10-23 04:56] LABS: INR 1.3; Partial Thromboplastin Time 31.6 Seconds (22.3-36.8); Prothrombin Time 16.6 Seconds (11.1-14.7)
--- NOTE | 2023-10-23 08:20 | PM.IMPN ---
Progress Note: A&P Assessment and Plan (1) GI bleed: Code(s): K92.2 - Gastrointestinal hemorrhage, unspecified Status: Acute (2) Acute blood loss anemia: Code(s): D62 - Acute posthemorrhagic anemia Status: Acute (3) Syncope: Code(s): R55 - Syncope and collapse Status: Acute (4) Paroxysmal atrial fibrillation: Code(s): I48.0 - Paroxysmal atrial fibrillation Status: Acute (5) Chronic anticoagulation: Code(s): Z79.01 - retirement (current) use of anticoagulants Status: Acute (6) Type 2 diabetes mellitus: Code(s): E11.9 - Type 2 diabetes mellitus without complications Status: Acute (7) Hypertension: Code(s): I10 - Essential (primary) hypertension Status: Acute (8) Hypothyroidism: Code(s): E03.9 - Hypothyroidism, unspecified Status: Acute Plan The patient presented to the emergency department for evaluation of falls, nausea, vomiting, and dark stools as detailed upon review the ED,She is profoundly anemic due to presumed upper GI bleed with risk factors to include meloxicam and rivaroxaban use. acute GI bleeding, acute blood loss anemia patient's nausea vomiting, black stools, hemoglobin 6.0, no recent hemoglobin baseline patient is on NSAID and Xeralto, that may result to the acute bleeding hold NSAID and blood thinner Continue Protonix IV Received pack RBC, hemoglobin stable, 8.4 today follow-up iron panel, Consult GI Keep patient p.o. Plans EGD type 2 diabetes Hold oral medications Start insulin sliding scales, hypoglycemic protocol is initiated Paroxysmal AFib Hold blood thinner due to active bleeding, resume blood thinner but is okay for GI rate is controlled syncope Possible due to acute blood loss and hypovolemia Telemetry monitoring Patient has no focal weakness Follow echocardiogram Doppler ultrasound of carotid artery Subjective Date/time seen: 10/23/23 08:20 Interval history: I saw exam patient today patient feels better today, denies abdomen pain, nausea vomiting black stools. Patient is afebrile, blood pressure stable, hemoglobin stable 8.5 patient received blood transfusion Exam Narrative: GENERAL: Pleasant, in no acute distress. Well-nourished. - EYES: EOMI. Anicteric. - HENT: Moist mucous membranes. - LUNGS: Clear to auscultation bilaterally, no wheezing, rhonchi, or rales. - CARDIOVASCULAR: Regular rate and rhythm. No murmur. No JVD. - ABDOMEN: Soft, non-tender and non-distended. No palpable masses. - EXTREMITIES: No edema. Peripheral pulses 2+. Non-tender. - NEUROLOGIC: No focal neurological deficits. CN II-XII grossly intact. - PSYCHIATRIC: Awake, Alert and oriented x 3. Appropriate mood and affect. - SKIN: No rashes or lesions. Warm. - LYMPH: No cervical lymphadenopathy. Objective Data Vital Signs Vital Signs: Vital Signs - 24 hr 10/22/23 11:04 10/22/23 11:26 10/22/23 11:34 Temperature Pulse Rate 124 H 131 H 137 H Respiratory Rate 20 17 17 Blood Pressure 113/40 L 117/88 106/38 L Pulse Oximetry 100 99 99 Oxygen Delivery 10/22/23 11:56 10/22/23 12:10 10/22/23 12:16 Temperature Pulse Rate 123 H 122 H 123 H Respiratory Rate 20 18 18 Blood Pressure 95/40 L 97/58 L 98/50 L Pulse Oximetry 99 100 99 Oxygen Delivery 10/22/23 12:28 10/22/23 13:16 10/22/23 14:00 Temperature Pulse Rate 126 H 123 H 108 H Respiratory Rate 15 20 16 Blood Pressure 97/30 L 97/49 L Pulse Oximetry 100 100 100 Oxygen Delivery 10/22/23 14:31 10/22/23 15:04 10/22/23 15:31 Temperature Pulse Rate 103 H 88 100 Respiratory Rate 19 20 19 Blood Pressure 94/38 L 99/47 L 107/63 Pulse Oximetry 100 100 99 Oxygen Delivery 10/22/23 16:05 10/22/23 16:53 10/22/23 17:12 Temperature 98.0 F 98.5 F Pulse Rate 90 83 81 Respiratory Rate 16 20 20 Blood Pressure 99/43 L 117/42 L 97/52 L Pulse Oximetry 98 96 97 Oxygen Delivery 10/22/23
[2023-10-23 09:39] LABS: Iron 65 ug/dL (37-170)
[2023-10-23 09:51] LABS: Percent Iron Saturation 17 % (20-50)
[2023-10-23 09:58] LABS: Hematocrit 24.8 % (37.0-47.0); Hemoglobin 8.1 g/dL (12.0-15.0)
[2023-10-23 12:13] LABS: Glucose Point of Care 212 mg/dl (65-105)
--- NOTE | 2023-10-23 12:44 | WPDGICN ---
Assessment and Plan Assessment and plan (1) GI bleed: Code(s): K92.2 - Gastrointestinal hemorrhage, unspecified Status: Acute Assessment and Plan: this most likely caused syncopal episode blood thinner on hold egd in am- probably ulcer- she is taking nsaid's iv protonix (2) Acute blood loss anemia: Code(s): D62 - Acute posthemorrhagic anemia Status: Acute Assessment and Plan: s/p blood transfusion iv protonix monitor for more signs of bleeding will do also colonoscopy (3) Melena: Code(s): K92.1 - Melena Status: Acute (4) Syncope: Code(s): R55 - Syncope and collapse Status: Acute (5) Chronic anticoagulation: Code(s): Z79.01 - intermediate (current) use of anticoagulants Status: Acute (6) Paroxysmal atrial fibrillation: Code(s): I48.0 - Paroxysmal atrial fibrillation Status: Acute (7) Type 2 diabetes mellitus: Code(s): E11.9 - Type 2 diabetes mellitus without complications Status: Acute GI Consult Note Consult date/time: 10/23/23 12:44 Reason for consult: melena, acute anemia, syncope HPI: Elvia Velasquez is a 73 year old female with h/o afib on xarelto, arthritis on meloxican, DM here with gib. She says that few days ago had one episode of emesis, then when she was out walking her dog all the sudden loss consciousness and fell to the floor hitting her left sided face and knee. Then she went home to rest and her soon took her to PCP and advised to monitor, then she had two episodes of dark tarry stools and next day had another syncopal episode this time at home, finally her son decided to bring her to ER. Her hgb was 6, bun 40, admitted to floor and given blood transfusion with iv protonix, rectal exam positive for blood. She is hemodynamically stable, had CT scan head. Last colonoscopy about 4 years ago. Son is here. Review of Systems Constitutional: Constitutional: Reports weakness Eyes: Eyes: Denies blurry vision ENT: Reports Normal hearing present Cardiovascular: Cardiovascular: Denies chest pain Respiratory: Respiratory: Denies cough Gastrointestinal: Gastrointestinal: Reports melena Genitourinary: Genitourinary: Denies dysuria Musculoskeletal: Comments: chronic arthritis using meloxicam Integumentary/Breasts: Skin/Breast: Denies rash Neurologic: Denies Abnormal speech present Psychiatric: Psychiatric: Denies behavioral changes [facility] Past Medical History Medical History (Updated 10/23/23 @ 12:50 by Austen Hassan MD) Atrial fibrillation Chronic anticoagulation History of stress test Hyperlipidemia Hypertension Hypothyroidism Melena Paroxysmal atrial fibrillation Type 2 diabetes mellitus Surgical History Surgical History History of cardioversion History of lumpectomy of right breast Family History Family History Other Breast cancer Social History Social History Social History: Surrogate medical decision maker: Ced Velasquez, caitie. Code status: Full code. Smoking status: Never smoker Alcohol intake: never Substance use: never Substance use type: does not use Do You Feel Safe in your Home?: Yes Lack of Transportation: No Lack of Food: Never True Current Housing: I Have Housing Concerned About Future Housing: No Difficulty Paying Gas/Electric Bills: No Difficulty Paying for Meds: No Currently Unemployed: No Education: High School Diploma/GED Difficulty w/ Childcare or Family Care: No Spiritual care concerns: No Meds Home Medications and Allergies Home Medications Medication Instructions Recorded Confirmed Type atorvastatin 80 mg tablet 80 mg PO DAILY 08/29/23 10/22/23 History diltiazem HCl 300 mg 300 mg PO DAILY 08/29/23 10/22/23 History
[2023-10-23] MEDS: INSULIN ASPART (*BKC) 100 UNITS/ML SUB-Q ×2 (13:12→19:38)
[2023-10-23 16:25] LABS: Hematocrit 25.7 % (37.0-47.0); Hemoglobin 8.3 g/dL (12.0-15.0)
[2023-10-23] MEDS: BISACODYL 5 MG TABLET EC 20 MG PO (18:08)
[2023-10-23] MEDS: polyethylene glycoL 3350 238 GM BOTTLE PO (18:09)
[2023-10-23 19:19] LABS: Glucose Point of Care 210 mg/dl (65-105)
[2023-10-23 20:42] LABS: Hematocrit 28.3 % (37.0-47.0); Hemoglobin 9.2 g/dL (12.0-15.0)
[2023-10-24] VITALS (21 sets, daily range): BP systolic 135–184; BP diastolic 60–102; PULSE 81–155; RESP 16–29; TEMP 36.1–37.1; O2SAT 96–99
--- NOTE | 2023-10-24 | ECHO_ITS ---
Patient Info Name: Elvia Velasquez Age: 73 years : 1950 Gender: Female Ht: 64 in Wt: 152 lbs BSA: 1.78 m2 HR: 120 bpm BP: 182 / 73 mmHg Heart Rhythm: Atrial Fibrillation Technical Quality: Fair Exam Date: 10/24/2023 8:24 AM Exam Location: Echo Lab Patient Status: Outpatient Admit Date: 10/22/2023 Staff Ordering Physician: Julianna Barahona PA-C Paralegal Legal Secretary: Miguel Kenyon RDCS Attending Provider: Anant Morley MD Referring Physician: [place] ADAM; Exam Type: CA echo doppler color flow Study Info Indications R55 - Syncope and collapse I48.1 - Persistent atrial fibrillation Complete two-dimensional, color flow and Doppler transthoracic echocardiogram is performed. Summary 1. Complete two-dimensional, color flow and Doppler transthoracic echocardiogram is performed. 2. Technically somewhat difficult exam. 3. Left ventricular hypertrophy with preserved systolic function. 4. Poorly visualized aortic valve which appears to be moderately stenotic. 5. Biatrial dilation. 6. Atrial fibrillation. Left Ventricle Left ventricular chamber dimension is normal. Left ventricular systolic function is normal, estimated at 60-65%. There is mild concentric increased left ventricular wall thickness. The left ventricular diastolic function is indeterminate. Right Ventricle Right ventricular chamber dimension is normal. Left Atria Left atrial chamber dimension is moderately enlarged. Right Atria Right atrial chamber dimension is mildly enlarged. Aortic Valve The aortic valve is trileaflet. There is moderate aortic valve stenosis with a peak velocity of 305 cm/s, mean gradient of 15 mmHg, and aortic valve area of 1.0 cm2. Pulmonic Valve The pulmonic valve is not well visualized. Mitral Valve The mitral valve has normal leaflets. The mitral valve annulus is mildly calcified. Tricuspid Valve The tricuspid valve leaflets are normal. There is trace tricuspid valve regurgitation. Pericardium/Pleural The pericardium appears normal. Aorta The aortic root size at the sinus of Valsalva is normal. Left Ventricular Outflow Tract Name Value Normal LVOT 2D LVOT Diameter 1.9 cm LVOT Doppler LVOT Peak Gradient 4 mmHg LVOT Mean Gradient 2 mmHg LVOT VTI 19 cm LVOT VTI/AV VTI Ratio 0.3 LVOT Stroke Volume 52 ml LVOT CO 9.8 l/min LVOT CI 5.5 l/min/m2 Pulmonic Valve Name Value Normal RVOT Doppler RVOT Peak Gradient 3 mmHg PV Doppler PV Peak Gradient 7 mmHg PV Regurgitation Doppler AR Peak End Diastolic Velocity
[2023-10-24 00:15] LABS: Glucose Point of Care 193 mg/dl (65-105)
[2023-10-24] MEDS: MAGNESIUM CITRATE 300 ML BTL PO (00:52)
[2023-10-24 03:00] LABS: Hematocrit 26.1 % (37.0-47.0); Hemoglobin 8.6 g/dL (12.0-15.0)
[2023-10-24 06:56] LABS: Anion Gap 7 mmol/L (4-12); Blood Urea Nitrogen 10 mg/dL (7-17); Calcium 8.7 mg/dL (8.4-10.2); Carbon Dioxide 22 mmol/L (22-30); Chloride 107 mmol/L (98-107); Estimated CRCL calculation 59 ml/min; Estimated Glomerular Filt Rate > 60; Glucose 157 mg/dL (65-110); Potassium 4.2 mmol/L (3.4-5.0); Sodium 136 mmol/L (137-145)
[2023-10-24] MEDS: PANTOPRAZOLE SODIUM IV 80 MG in SODIUM CHLORIDE 0.9% IV 500 ML 50 MG IV CONT (09:12)
[2023-10-24] MEDS: ATORVASTATIN 40 MG TABLET 80 MG PO (09:12)
[2023-10-24] MEDS: dilTIAZem HCL CD 300 MG CAP.24HR PO (09:12)
--- NOTE | 2023-10-24 09:24 | PM.IMPN ---
Progress Note: A&P Assessment and Plan (1) GI bleed: Code(s): K92.2 - Gastrointestinal hemorrhage, unspecified Status: Acute (2) Acute blood loss anemia: Code(s): D62 - Acute posthemorrhagic anemia Status: Acute (3) Syncope: Code(s): R55 - Syncope and collapse Status: Acute (4) Paroxysmal atrial fibrillation: Code(s): I48.0 - Paroxysmal atrial fibrillation Status: Acute (5) Chronic anticoagulation: Code(s): Z79.01 - half-way (current) use of anticoagulants Status: Acute (6) Type 2 diabetes mellitus: Code(s): E11.9 - Type 2 diabetes mellitus without complications Status: Acute (7) Hypertension: Code(s): I10 - Essential (primary) hypertension Status: Acute (8) Hypothyroidism: Code(s): E03.9 - Hypothyroidism, unspecified Status: Acute Plan The patient presented to the emergency department for evaluation of falls, nausea, vomiting, and dark stools as detailed upon review the ED,She is profoundly anemic due to presumed upper GI bleed with risk factors to include meloxicam and rivaroxaban use. acute GI bleeding, acute blood loss anemia patient's nausea vomiting, black stools, hemoglobin 6.0, no recent hemoglobin baseline patient is on NSAID and Xeralto, that may result to the acute bleeding hold NSAID and blood thinner Continue Protonix IV Received pack RBC, hemoglobin stable, 8.4 today follow-up iron panel no iron deficiency, indicating acute blood lost anemia Consult GI Keep patient p.o. Plans EGD today optional type 2 diabetes Hold oral medications Start insulin sliding scales, hypoglycemic protocol is initiated Paroxysmal AFib Hold blood thinner due to active bleeding, resume blood thinner but is okay for GI rate is controlled syncope Possible due to acute blood loss and hypovolemia Telemetry monitoring Patient has no focal weakness Follow echocardiogram Doppler ultrasound of carotid artery Subjective Date/time seen: 10/24/23 09:24 Interval history: I saw exam patient today patient feels better today, denies abdomen pain, nausea vomiting black stools. Patient is afebrile, blood pressure stable, hemoglobin stable , no new issue or events overnight Exam Narrative: GENERAL: Pleasant, in no acute distress. Well-nourished. - EYES: EOMI. Anicteric. - HENT: Moist mucous membranes. - LUNGS: Clear to auscultation bilaterally, no wheezing, rhonchi, or rales. - CARDIOVASCULAR: Regular rate and rhythm. No murmur. No JVD. - ABDOMEN: Soft, non-tender and non-distended. No palpable masses. - EXTREMITIES: No edema. Peripheral pulses 2+. Non-tender. - NEUROLOGIC: No focal neurological deficits. CN II-XII grossly intact. - PSYCHIATRIC: Awake, Alert and oriented x 3. Appropriate mood and affect. - SKIN: No rashes or lesions. Warm. - LYMPH: No cervical lymphadenopathy. Objective Data Vital Signs Vital Signs: Vital Signs - 24 hr 10/23/23 12:00 10/23/23 10:00 10/23/23 12:00 Temperature 98.1 F Pulse Rate 92 86 90 Respiratory Rate 24 H Blood Pressure 125/65 Pulse Oximetry 97 Oxygen Delivery 10/23/23 14:00 10/23/23 12:00 10/23/23 16:00 Temperature 98.6 F Pulse Rate 104 H 98 Respiratory Rate 24 H Blood Pressure 133/74 Pulse Oximetry 98 Oxygen Delivery Room Air 10/23/23 16:00 10/23/23 18:00 10/23/23 16:00 Temperature Pulse Rate 101 H 121 H Respiratory Rate Blood Pressure Pulse Oximetry Oxygen Delivery Room Air 10/23/23 20:00 10/23/23 20:00 10/23/23 20:00 Temperature 97.5 F L Pulse Rate 116 H 116 H 117 H Respiratory Rate 22 H 22 H Blood Pressure 145/64 H Pulse Oximetry 99 99 Oxygen Delivery Room Air 10/23/23 20:00 10/23/23 20:53 10/23/23 20:53 Temperature 97.5 F L Pulse Rate Respiratory Rate 22 H Blood Pressure 143/71 H 145/64 H 175/73 H Pulse Oximetry 99 Oxygen Delivery 10/23/23 22:00 06
[2023-10-24 11:38] LABS: Glucose Point of Care 132 mg/dl (65-105)
[2023-10-24] MEDS: LACTATED RINGERS 1,000 ML 150 ML IV CONT (14:29)
[2023-10-24 14:31] LABS: Glucose Point of Care 131 mg/dl (65-105)
--- NOTE | 2023-10-24 14:44 | WPDANESEPPF ---
Anes - Initial Pre Proc Eval Procedure: Operation Date: 10/24/23 15:30 Proposed Procedures p Esophagogastroduodenoscopy & Colonoscopy - Austen Hassan MD Date/Time: 10/24/23 14:44 Surgeon: Anant Morley MD Pre Op Diagnosis: Upper GI Bleed,Anemia Patient Data Age: 73 Gender: F Height: 1.63 m Weight: 73.1 kg Last Vital Signs Temp 97.8 F 10/24/23 14:27 Pulse 81 10/24/23 14:27 Resp 18 10/24/23 14:27 BP 145/85 H 10/24/23 14:27 Pulse Ox 97 10/24/23 14:27 O2 Del Method Room Air 10/24/23 14:27 Allergies Allergy/AdvReac Type Severity Reaction Status Date / Time Penicillins Allergy Mild Unknown Verified 08/29/23 10:55 Home Medications Medication Instructions Recorded Confirmed Type atorvastatin 80 mg tablet 80 mg PO DAILY 08/29/23 10/22/23 History diltiazem HCl 300 mg 300 mg PO DAILY 08/29/23 10/22/23 History capsule,extended release 24 hr (Cardizem CD) glipizide 5 mg tablet 5 mg PO BIDWM 08/29/23 10/22/23 History levothyroxine 100 mcg tablet 100 mcg PO DAILY 08/29/23 10/22/23 History (Synthroid) meloxicam 15 mg tablet 15 mg PO DAILY 08/29/23 10/22/23 History olmesartan 20 mg tablet 20 mg PO DAILY 08/29/23 10/22/23 History rivaroxaban 20 mg tablet (Xarelto) 20 mg PO QPM 08/29/23 10/22/23 History sitagliptin phos 100 mg-metformin 1 tablet PO DAILY 08/29/23 10/22/23 History ER 1,000 mg tablet,extend rel 24h mp (Janumet XR) tramadol 50 mg tablet 50 mg PO Q8H PRN Pain (Scale Score 08/29/23 10/23/23 History 4-6) acetaminophen 650 mg 1,300 mg PO DAILY 10/23/23 10/23/23 History tablet,extended release (Arthritis Pain Relief (acetaminophen) ER) magnesium oxide 400 mg (241.3 mg 400 mg PO DAILY 10/23/23 10/23/23 History magnesium) tablet Laboratory Tests 10/23/23 10/23/23 10/23/23 16:21 19:16 20:35 Hgb 8.3 L g/dL 9.2 L g/dL (12.0-15.0) (12.0-15.0) Hct 25.7 L % 28.3 L % (37.0-47.0) (37.0-47.0) Sodium Potassium Chloride Carbon Dioxide Anion Gap BUN Creatinine Estim Creat Clear Calc Estimated GFR Glucose POC Capillary Glucose 210 H mg/dl (65-105) Calcium 10/24/23 10/24/23 10/24/23 00:04 02:21 06:32 Hgb 8.6 L g/dL (12.0-15.0) Hct 26.1 L % (37.0-47.0) Sodium 136 L mmol/L (137-145) Potassium 4.2 mmol/L (3.4-5.0) Chloride 107 mmol/L (98-107) Carbon Dioxide 22 mmol/L (22-30) Anion Gap 7 mmol/L (4-12) BUN 10 D mg/dL (7-17) Creatinine 0.70 mg/dL (0.7-1.0) Estim Creat Clear Calc 59 ml/min Estimated GFR > 60 (59 - ) Glucose 157 H mg/dL (65-110) POC Capillary Glucose 193 H mg/dl (65-105) Calcium 8.7 mg/dL (8.4-10.2) 10/24/23 10/24/23 11:36 14:26 Hgb Hct Sodium Potassium Chloride Carbon Dioxide Anion Gap BUN Creatinine Estim Creat Clear Calc Estimated GFR Glucose POC Capillary Glucose 132 H mg/dl 131 H mg/dl (65-105) (65-105) Calcium Patient hx anesthesia problems: none Family hx anesthesia problems: none Results Review: All pre-operative results and documents have been reviewed as part of the pre-operative evaluation. [facility] Past Medical History Medical History (Updated 10/23/23 @ 12:50 by Austen Hassan MD) Atrial fibrillation Chronic anticoagulation History of stress test Hyperlipidemia Hypertension Hypothyroidism Melena Paroxysmal atrial fibrillation Type 2 diabetes mellitus Surgical History Surgical History History of cardioversion History of lumpectomy of right breast Family H
--- NOTE | 2023-10-24 16:09 | SUR.OPER ---
EGD end at 1604 Colon start 1603
[2023-10-24 16:39] LABS: Glucose Point of Care 120 mg/dl (65-105)
[2023-10-24] MEDS: PANTOPRAZOLE SODIUM IV 40 MG VIAL IV PUSH (19:59)
[2023-10-24] MEDS: traMADol HCL (*CRX) 50 MG TABLET PO (19:59)
[2023-10-24] MEDS: ACETAMINOPHEN 325 MG TABLET 650 MG PO (22:31)
[2023-10-25] VITALS (7 sets, daily range): BP systolic 123–138; BP diastolic 45–74; PULSE 83–109; RESP 19–20; TEMP 36.1–37.8; O2SAT 94–95
[2023-10-25 00:48] LABS: Glucose Point of Care 254 mg/dl (65-105)
[2023-10-25] MEDS: INSULIN ASPART (*BKC) 100 UNITS/ML SUB-Q (01:00)
[2023-10-25 05:25] LABS: Anion Gap 4 mmol/L (4-12); Blood Urea Nitrogen 10 mg/dL (7-17); Calcium 8.5 mg/dL (8.4-10.2); Carbon Dioxide 25 mmol/L (22-30); Chloride 104 mmol/L (98-107); Estimated CRCL calculation 52 ml/min; Estimated Glomerular Filt Rate > 60; Glucose 165 mg/dL (65-110); Potassium 4.1 mmol/L (3.4-5.0); Sodium 133 mmol/L (137-145)
[2023-10-25] MEDS: LEVOTHYROXINE SODIUM 100 MCG TABLET PO (06:47)
[2023-10-25] MEDS: traMADol HCL (*CRX) 50 MG TABLET PO (06:47)
--- NOTE | 2023-10-25 08:32 | PM.IMPN ---
Progress Note: A&P Assessment and Plan (1) GI bleed: Code(s): K92.2 - Gastrointestinal hemorrhage, unspecified Status: Acute (2) Acute blood loss anemia: Code(s): D62 - Acute posthemorrhagic anemia Status: Acute (3) Syncope: Code(s): R55 - Syncope and collapse Status: Acute (4) Paroxysmal atrial fibrillation: Code(s): I48.0 - Paroxysmal atrial fibrillation Status: Acute (5) Chronic anticoagulation: Code(s): Z79.01 - retirement (current) use of anticoagulants Status: Acute (6) Type 2 diabetes mellitus: Code(s): E11.9 - Type 2 diabetes mellitus without complications Status: Acute (7) Hypertension: Code(s): I10 - Essential (primary) hypertension Status: Acute (8) Hypothyroidism: Code(s): E03.9 - Hypothyroidism, unspecified Status: Acute Plan The patient presented to the emergency department for evaluation of falls, nausea, vomiting, and dark stools as detailed upon review the ED,She is profoundly anemic due to presumed upper GI bleed with risk factors to include meloxicam and rivaroxaban use. acute GI bleeding, acute blood loss anemia patient's nausea vomiting, black stools, hemoglobin 6.0, no recent hemoglobin baseline patient is on NSAID and Xeralto, that may result to the acute bleeding hold NSAID and blood thinner Continue Protonix IV Received pack RBC, hemoglobin stable, 8.4 today follow-up iron panel no iron deficiency, indicating acute blood lost anemia Consult GI 10/24 EGD 10/23 Showed a [place] tear near the GE junction, 2 clips were placed changed to prednisone 40 mg daily p.o., start Carafate 1 g t.i.d. p.o. type 2 diabetes Hold oral medications during hospitalization started insulin sliding scales, hypoglycemic protocol is initiated resume home medication on discharge Paroxysmal AFib Hold blood thinner due to active bleeding, resume blood thinner but is okay for GI rate is controlled hold Xeralto for 1 wk per GI syncope Possible due to acute blood loss and hypovolemia Telemetry monitoring, it does not show significant arrhythmia Patient has no focal weakness Follow echocardiogram Doppler ultrasound of carotid artery, unremarkable Subjective Date/time seen: 10/25/23 08:32 Interval history: I saw exam patient today patient feels better today, denies abdomen pain, nausea vomiting black stools. Patient is afebrile, blood pressure stable, hemoglobin stable. Exam Narrative: GENERAL: Pleasant, in no acute distress. Well-nourished. - EYES: EOMI. Anicteric. - HENT: Moist mucous membranes. - LUNGS: Clear to auscultation bilaterally, no wheezing, rhonchi, or rales. - CARDIOVASCULAR: Regular rate and rhythm. No murmur. No JVD. - ABDOMEN: Soft, non-tender and non-distended. No palpable masses. - EXTREMITIES: No edema. Peripheral pulses 2+. Non-tender. - NEUROLOGIC: No focal neurological deficits. CN II-XII grossly intact. - PSYCHIATRIC: Awake, Alert and oriented x 3. Appropriate mood and affect. - SKIN: No rashes or lesions. Warm. - LYMPH: No cervical lymphadenopathy. Objective Data Vital Signs Vital Signs: Vital Signs - 24 hr 10/24/23 10:00 10/24/23 11:31 10/24/23 12:00 Temperature 97.6 F Pulse Rate 138 H 135 H 114 H Respiratory Rate 22 H Blood Pressure 144/86 H Pulse Oximetry 96 Oxygen Delivery 10/24/23 12:00 10/24/23 14:00 10/24/23 14:27 Temperature 97.8 F Pulse Rate 114 H 110 H 81 Respiratory Rate 22 H 18 Blood Pressure 145/85 H Pulse Oximetry 96 97 Oxygen Delivery Room Air Room Air 10/24/23 16:22 10/24/23 16:32 10/24/23 16:42 Temperature Pulse Rate 108 H 93 102 H Respiratory Rate 29 H 25 H 22 H Blood Pressure 142/71 H 139/83 136/60 Pulse Oximetry 96 96 97 Oxygen Delivery Room Air Room Air Room Air 10/24/23 17:00 10/24/23 17:00 10/24/23 20:00 Temperature 98.0 F Pulse Rate 120 H 120 H 103 H Respirator
--- NOTE | 2023-10-25 08:41 | PM.DS ---
DS: Admitting Diagnosis Discharge Date 10/24 Admitting Diagnosis (1) GI bleed: Code(s): K92.2 - Gastrointestinal hemorrhage, unspecified Status: Acute (2) Acute blood loss anemia: Code(s): D62 - Acute posthemorrhagic anemia Status: Acute (3) Syncope: Code(s): R55 - Syncope and collapse Status: Acute (4) Paroxysmal atrial fibrillation: Code(s): I48.0 - Paroxysmal atrial fibrillation Status: Acute (5) Chronic anticoagulation: Code(s): Z79.01 - custodial (current) use of anticoagulants Status: Acute (6) Type 2 diabetes mellitus: Code(s): E11.9 - Type 2 diabetes mellitus without complications Status: Acute (7) Hypertension: Code(s): I10 - Essential (primary) hypertension Status: Acute (8) Hypothyroidism: Code(s): E03.9 - Hypothyroidism, unspecified Status: Acute DS: Discharge Diagnosis Discharge Diagnosis (1) GI bleed: Code(s): K92.2 - Gastrointestinal hemorrhage, unspecified Status: Acute (2) Acute blood loss anemia: Code(s): D62 - Acute posthemorrhagic anemia Status: Acute (3) Syncope: Code(s): R55 - Syncope and collapse Status: Acute (4) Paroxysmal atrial fibrillation: Code(s): I48.0 - Paroxysmal atrial fibrillation Status: Acute (5) Chronic anticoagulation: Code(s): Z79.01 - custodial (current) use of anticoagulants Status: Acute (6) Type 2 diabetes mellitus: Code(s): E11.9 - Type 2 diabetes mellitus without complications Status: Acute (7) Hypertension: Code(s): I10 - Essential (primary) hypertension Status: Acute (8) Hypothyroidism: Code(s): E03.9 - Hypothyroidism, unspecified Status: Acute DS: Summary Hospital Course Hospital Course: The patient presented to the emergency department for evaluation of falls, nausea, vomiting, and dark stools as detailed upon review the ED,She is profoundly anemic due to presumed upper GI bleed with risk factors to include meloxicam and rivaroxaban use. the following med issues have been addressed during hospitalization acute GI bleeding, acute blood loss anemia patient's nausea vomiting, black stools, hemoglobin 6.0, no recent hemoglobin baseline patient is on NSAID and Xeralto, that may result to the acute bleeding hold NSAID and blood thinner received Protonix IV Received pack RBC, hemoglobin stable, follow-up iron panel no iron deficiency, indicating acute blood lost anemia Consulted GI 10/24 EGD 10/23 Showed a [place] tear near the GE junction, 2 clips were placed changed to prednisone 40 mg daily p.o., start Carafate 1 g t.i.d. p.o. type 2 diabetes Hold oral medications during hospitalization started insulin sliding scales, hypoglycemic protocol is initiated resume home medication on discharge Paroxysmal AFib Hold blood thinner due to active bleeding, resume blood thinner but is okay for GI rate is controlled hold Xeralto for 1 wk per GI syncope Possible due to acute blood loss and hypovolemia Telemetry monitoring, it does not show significant arrhythmia Patient has no focal weakness Follow echocardiogram Doppler ultrasound of carotid artery, unremarkable Time Spent with Patient Time attestation: Total time spent providing and/or coordinating discharge services: Exam Narrative: GENERAL: Pleasant, in no acute distress. Well-nourished. - EYES: EOMI. Anicteric. - HENT: Moist mucous membranes. - LUNGS: Clear to auscultation bilaterally, no wheezing, rhonchi, or rales. - CARDIOVASCULAR: Regular rate and rhythm. No murmur. No JVD. - ABDOMEN: Soft, non-tender and non-distended. No palpable masses. - EXTREMITIES: No edema. Peripheral pulses 2+. Non-tender. - NEUROLOGIC: No focal neurological deficits. CN II-XII grossly intact. - PSYCHIATRIC: Awake, Alert and oriented x 3. Appropriate mood and affect. - S
[2023-10-25 08:45] LABS: Hematocrit 25.4 % (37.0-47.0); Hemoglobin 8.1 g/dL (12.0-15.0); Mean Corpuscular HGB Conc 31.9 g/dl (32-36); Mean Corpuscular Hemoglobin 30.7 pg (26-34); Mean Corpuscular Volume 96.2 fl (80-100); Mean Platelet Volume 9.7 fl (7.4-10.4); Platelet Count Result 369 k/mm3 (150-375); Red Blood Count 2.64 M/mm3 (4.2-5.4); Red Cell Distribution Width 15.3 % (11.5-14.5); White Blood Count 12.6 K/mm3 (4.5-10.0)
--- NOTE | 2023-10-25 08:45 | WPDANESPN ---
Anes - Prog Note Post-Op Date/Time: 10/25/23 08:45 Cardiovascular status: normal Respiratory status: normal Airway patency: baseline Mental status: baseline Post-Op hydration status: normal Vital Signs: Last Vital Signs Temp 36.7 C 10/25/23 07:41 Pulse 107 H 10/25/23 07:41 Resp 19 10/25/23 07:41 BP 123/74 10/25/23 07:41 Pulse Ox 94 10/25/23 07:41 O2 Del Method Room Air 10/25/23 04:00 Pain Score (VAS): 07/02 I/O: Intake & Output 10/24/23 10/25/23 10/25/23 23:59 07:59 15:59 Intake Total 50 475 Output Total 500 850 Balance -450 -375 Laboratory Tests 10/25/23 04:29 10/24/23 10/24/23 10/24/23 11:36 14:26 16:38 WBC RBC Hgb Hct MCV MCH MCHC RDW Plt Count MPV Sodium Potassium Chloride Carbon Dioxide Anion Gap BUN Creatinine Estim Creat Clear Calc Estimated GFR Glucose POC Capillary Glucose 132 H 131 H 120 H Calcium 10/24/23 10/25/23 10/25/23 23:54 04:25 04:29 WBC Pending RBC Pending Hgb Pending Hct Pending MCV Pending MCH Pending MCHC Pending RDW Pending Plt Count Pending MPV Pending Sodium 133 L Potassium 4.1 Chloride 104 Carbon Dioxide 25 Anion Gap 4 BUN 10 Creatinine 0.80 Estim Creat Clear Calc 52 Estimated GFR > 60 Glucose 165 H POC Capillary Glucose 254 H Calcium 8.5 Post-procedural complaints: none Patient Feedback: Patient satisfied with anesthetic care.
[2023-10-25] MEDS: dilTIAZem HCL CD 300 MG CAP.24HR PO (08:54)
[2023-10-25] MEDS: PANTOPRAZOLE SODIUM IV 40 MG VIAL IV PUSH (08:54)
[2023-10-25] MEDS: ATORVASTATIN 40 MG TABLET 80 MG PO (08:54)
== END 2023-10-25 12:10 | disposition home or self-care (01) | DRG 369 ==
LOC: ANHED 13:02 → ANHIMU 15:04
PROVIDERS: Internal Medicine; Internal Medicine Gastroenterology; Physician Assistant; Admitting Provider Hospitalist; Emergency Provider Emergency Medicine; PCP Family Medicine; Visit Provider Hospitalist
PROC: 0DJ08ZZ Inspection of Upper Intestinal Tract, Via Natural or Artificial Opening Endoscopic (ICD-10-PCS; CPT 43235; principal; 2023-10-24 15:30)
DX: K22.6 Gastro-esophageal laceration-hemorrhage syndrome (principal); D62 Acute posthemorrhagic anemia; E11.9 Type 2 diabetes mellitus without complications; E78.5 Hyperlipidemia, unspecified; E03.9 Hypothyroidism, unspecified; I48.0 Paroxysmal atrial fibrillation; R55 Syncope and collapse; I10 Essential (primary) hypertension; K44.9 Diaphragmatic hernia without obstruction or gangrene; M47.812 Spondylosis without myelopathy or radiculopathy, cervical region; Z79.01 Long term (current) use of anticoagulants; Z79.1 Long term (current) use of non-steroidal anti-inflammatories (NSAID); Z79.84 Long term (current) use of oral hypoglycemic drugs; Z88.0 Allergy status to penicillin; Z91.81 History of falling; Z79.85 Long-term (current) use of injectable non-insulin antidiabetic drugs
CPT/HCPCS: 36415; 36430; 70450; 72125; 80048; 80053; 81001; 82948; 83036; 83540; 83550; 83690; 83735; 84443; 85014; 85018; 85025; 85027; 85610; 85730; 86850; 86900; 86901; 86923; 93005; 93306; 93880; 96361; 96365; 96366; 96374; 96375; 96376; 99285; A9270; C9113; G0378; J1815; J2405; J2704; J7030; J7040; J7050; J7120; P9016